=== PATIENT | female | born 1955 | race Caucasian/White ===

== ENCOUNTER → 2020-04-02 | Outpatient (CLI) | payer MEDICARE, MEDICAID ==
[~2020-04-02] MED LIST: ASPI-630 PO; ATOR10TA60 PO; ESTR0.5T PO; FLEC100T PO; FURO-68 PO; METO50TA6 PO; OMEP40CA45 PO; TRIA15CR3 TP
--- NOTE | 2020-04-03 12:56 | CARD ---
MR#: [id number] Date of Study: 04/02/2020 Ordering Physician: NICHOL SPARROW, Referring Physician: NICHOL SPARROW, Tech: Camilla Astudillo [facility] APPROVED REPORT EXAM: Two-dimensional and M-mode echocardiogram with Doppler and color Doppler. Other Information Quality : Fair INDICATION Dsypnea on Exertion RISK FACTORS Obesity 2D DIMENSIONS RVDd2.8 (2.9-3.5cm)Left Atrium(2D)4.0 (1.6-4.0cm) IVSd1.6 (0.7-1.1cm)Aortic Root(2D)3.0 (2.0-3.7cm) LVDd3.9 (3.9-5.9cm)LVOT Diameter2.0 (1.8-2.4cm) PWd1.3 (0.7-1.1cm)LVDs2.7 (2.5-4.0cm) FS (%) 29.2 %SV36.4 ml LVEF(%)56.8 (>50%) Aortic Valve AoV Peak Ramin.142.1cm/sAoV VTI29.2cm AO Peak GR.8.1mmHgLVOT Peak Ramin.138.9cm/s AO Mean GR.4mmHgAVA (VMAX)2.96cm2 ALISON (VTI)3.20cm2 Mitral Valve MV E Kkmvsrew03.2cm/sMV DECEL [id number] MV A Udtfvdlq51.8cm/sE/A Ratio0.9 Tricuspid Valve TR P. Qpxhlphj223jp/sRAP FLSBWGLR3wzBi TR Peak Gr.17dqFsNDVF53kvKy Pulmonary Vein S1 Wdkanavk41.1cm/sD2 Xdtfyvsh73.4cm/s LEFT VENTRICLE The left ventricle is normal size. There is mild to moderate concentric left ventricular hypertrophy. The left ventricular systolic function is normal. The Ejection Fraction is 55-60%. There is normal L V segmental wall motion. Transmitral Doppler flow pattern is Grade I-abnormal relaxation pattern. RIGHT VENTRICLE The right ventricle is normal size. The right ventricular systolic function is normal. ATRIA The left atrium is mildly dilated. The right atrium size is normal. The interatrial septum is intact with no evidence for an atrial septal defect or patent foramen ovale as noted on 2-D or Doppler imagi ng. AORTIC VALVE The aortic valve is calcified but opens well. Doppler and Color Flow revealed no significant aortic r egurgitation. There is no significant aortic valvular stenosis. MITRAL VALVE The mitral valve is calcified but opens well. There is no evidence of mitral valve prolapse. There is no mitral valve stenosis. Doppler and Color Flow revealed no mitral valve regurgitation noted. TRICUSPID VALVE The tricuspid valve is normal in structure and function. Doppler and Color Flow revealed trace tricus pid regurgitation. There is mild to moderate pulmonary hypertension. The PA pressure was estimated at 40 mmHg. There is no tricuspid valve stenosis. PULMONIC VALVE The pulmonic valve is not well visualized. Doppler and Color Flow revealed no pulmonic valvular regur gitation. There is no pulmonic valvular stenosis. GREAT VESSELS The aortic root is normal in size. The ascending aorta is not well seen. The IVC was not visualized. PERICARDIAL EFFUSION There is no evidence of significant pericardial effusion. Critical Notification Critical Value: No <Conclusion> The left ventricular systolic function is normal. The Ejection Fraction is 55-60%. There is normal LV segmental wall motion. Transmitral Doppler flow pattern is Grade I-abnormal relaxation pattern. Trace tricuspid regurgitation. The PA pressure was estimated at 40 mmHg. There is no evidence of significant pericardial effusion. Signed by : Ruslan Mcnamara, Electronically Approved : 04/03/2020 12:56:09
== END ==
LOC: ECHO 14:26
PROVIDERS: ATTEND Internal Medicine Cardiovascular Disease
DX: R06.00 Dyspnea, unspecified (principal)
CPT/HCPCS: 93306

== ENCOUNTER 2021-08-04 09:21 | Emergency (ER) | payer MEDICARE, MEDICAID ==
[~2021-08-04] VITALS: Ht 162.6 cm; Wt 113.6 kg
[~2021-08-04 09:21] MED LIST changes: +ALBU2.5V8 IH; +APIX5TAB PO; +CALC500T30 PO; +CHOL5000 PO; +DIGO125T3 PO; -OMEP40CA45 PO; +OMEP40CA7 PO; +TRIA15CR2 TP
--- NOTE | 2021-08-04 09:53 | RAD ---
INDICATION: Reason: SOA / Spl. Instructions: / History: COMPARISON: March 13, 2021 FINDINGS: Frontal view of chest obtained. Cardiac mediastinal silhouette is mildly prominent but similar to prior. Device projecting over the r ight side of the mediastinum. Limited assessment of the left lung base secondary to overlying cardiac silhouette obscuring. No defi nite consolidation elsewhere in the lungs. IMPRESSION: * No definite focal airspace consolidation. Electronically signed by: Israel Banegas MD (08/04/2021 9:51 AM) [id number]
[2021-08-04 09:58] LABS: BASO # 0.1 x10^3/uL (0.0-0.2); BASO % 1 % (0-3); EOS # 0.1 x10^3/uL (0.0-0.7); EOS % 2 % (0-3); HEMATOCRIT 34.2 % (36.0-47.0); HEMOGLOBIN 11.3 g/dL (12.0-15.5); LYMPH # 1.6 x10^3/uL (1.0-4.8); LYMPH % 16 % (24-48); MEAN CORPUSCULAR HEMOGLOBIN 28 pg (25-35); MEAN CORPUSCULAR HGB CONC 33 g/dL (31-37); MEAN CORPUSCULAR VOLUME 84 fL (79-100); MONO # 0.6 x10^3/uL (0.0-1.1); MONO % 6 % (0-9); NEUT # 7.3 x10^3/uL (1.8-7.7); NEUT % 75 % (31-73); PLATELET COUNT 234 x10^3/uL (140-400); RED BLOOD COUNT 4.09 x10^6/uL (3.50-5.40); RED CELL DISTRIBUTION WIDTH 14.4 % (11.5-14.5); WHITE BLOOD COUNT 9.8 x10^3/uL (4.0-11.0)
--- NOTE | 2021-08-04 10:03 | PHYS DOC ---
Past Medical History Past Medical History: A-Fib, CHF, High Cholesterol, Hypertension Additional Past Medical Histor: HORMONE ISSUES, SUDHEER Past Surgical History: Hysterectomy, Other Additional Past Surgical Histo: CARPLE TUNNEL Smoking Status: Former Smoker Alcohol Use: None General Adult EDM: Chief Complaint: SHORTNESS OF BREATH HPI: HPI: Patient is a 66-year-old female who presents today with shortness of air. Patient states the symptoms started this morning, she got out of bed today and she started having some increased difficulty breathing, she denies any chest pain but does state that she had a tightness along the upper abdomen area. Patient states that on Thursday she had a cardioversion done for atrial fibrillation, she was placed on sotalol 120 mg twice daily after the conversion, she said that is a new medication for her she is also on dig as well. Patient is wearing a Holter monitor at this time. Patient states she does have a history of sleep apnea but does not use a CPAP machine on a daily basis, she said she has an appointment next week with her physician to get that set up. Review of Systems: Review of Systems: Constitutional: Denies fever or chills. [] Eyes: Denies change in visual acuity. [] HENT: Denies nasal congestion or sore throat. [] Respiratory: shortness of breath. [] Cardiovascular: Denies chest pain or edema. [] GI: Denies abdominal pain, nausea, vomiting, bloody stools or diarrhea. [] : Denies dysuria. [] Musculoskeletal: Denies back pain or joint pain. [] Integument: Denies rash. [] Neurologic: Denies headache, focal weakness or sensory changes. [] Endocrine: Denies polyuria or polydipsia. [] Lymphatic: Denies swollen glands. [] Psychiatric: Denies depression or anxiety. [] Heart Score: C/O Chest Pain: No Risk Factors: Risk Factors: DM, Current or recent (<one month) smoker, HTN, HLP, family history of CAD, obesity. Risk Scores: Score 0 - 3: 2.5% MACE over next 6 weeks - Discharge Home Score 4 - 6: 20.3% MACE over next 6 weeks - Admit for Clinical Observation Score 7 - 10: 72.7% MACE over next 6 weeks - Early Invasive Strategies Allergies: Allergies: Allergies Coded Allergies Type Severity Reaction Last Updated Verified Penicillins Allergy Intermediate 03/14/21 Yes diazepam Allergy Intermediate 03/14/21 No hydrocodone Allergy Intermediate 03/14/21 No sulfacetamide Allergy Intermediate 03/14/21 No acetaminophen Allergy Mild 02/27/20 No Physical Exam: PE: Constitutional: Well developed, well nourished, no acute distress, non-toxic appearance. [] HENT: Normocephalic, atraumatic, bilateral external ears normal, oropharynx moist, no oral exudates, nose normal. [] Eyes: PERRLA, EOMI, conjunctiva normal, no discharge. [] Neck: Normal range of motion, no tenderness, supple, no stridor. [] Cardiovascular:Heart rate regular rhythm, no murmur [] Lungs & Thorax: Bilateral breath sounds clear to auscultation [] Abdomen: Bowel sounds normal, soft, no tenderness, no masses, no pulsatile masses. [] Skin: Warm, dry, no erythema, no rash. [] Back: No tenderness, no CVA tenderness. [] Extremities: No tenderness, no cyanosis, no clubbing, ROM intact, no edema. [] Neurologic: Alert and oriented X 3, normal motor function, normal sensory function, no focal deficits noted. [] Psychologic: Affect normal, judgement normal, mood normal. [] Current Patient Data: Labs: Laboratory Tests Test 08/04/21 09:50 White Blood Count 9.8 x10^3/uL (4.0-11.0) Red Blood Count 4.09 x10^6/uL (3.50-5.40) Hemoglobin 11.3 g/dL (12.0-15.5) L Hematocrit 34.2 % (36.0-47.0) L Mean Corpuscular Volume 84 fL (79-100) Mean Corpuscular Hemoglobin 28 pg (25-35) Mean Corpuscular Hemoglobin Concent 33 g/dL (31-37) Red Cell Distribution Width 14.4 % (11.5-14.5) Platelet Count 234 x10^3/uL (140-400) Neutrophils (%) (Auto) 75 % (31-73) H Lymphocytes (%) (Auto) 16 % (24-48) L Monocytes (%) (Auto) 6 % (0-9) Eosinophils (%) (Auto) 2 % (0-3) Basophils (%) (Auto) 1 % (0-3) Neutrophils # (Auto) 7.3 x10^3/uL (1.8-7.7) Lymphocytes # (Auto) 1.6 x10^3/uL (1.0-4.8) Monocytes # (Auto) 0.6 x10^3/uL (0.0-1.1) Eosinophils # (Auto) 0.1 x10^3/uL (0.0-0.7) Basophils # (Auto) 0.1 x10^3/uL (0.0-0.2) Laboratory Tests 08/04/21 09:50 Vital Signs: Vital Signs Date Time Temp Pulse Resp B/P (MAP) Pulse Ox O2 Delivery O2 Flow Rate FiO2 08/04/21 13:28 59 202/84 08/04/21 13:03 62 18 202/84 (123) 95 Room Air 08/04/21 12:33 60 18 188/78 (114) 95 Room Air 08/04/21 12:03 53 18 193/76 (115) 95 Room Air 08/04/21 11:33 53 18 185/81 (115) 95 Room Air 08/04/21 11:03 58 18 183/73 (109) 95 Room Air 08/04/21 10:33 63 18 180/77 (111) 95 Room Air 08/04/21 10:03 62 20 170/77 (108) 95 Room Air 08/04/21 09:26 97.6 62 20 165/70 (101) 95 Room Air 97.6 Vital Signs Date Time Temp Pulse Resp B/P (MAP) Pulse Ox O2 Delivery O2 Flow Rate FiO2 08/04/21 09:26 97.6 62 20 165/70 (101) 95 Room Air 97.6 EKG: EKG: EKG done at [address] Nunez at 940 shows sinus rhythm at a rate of 63 with a MI interval of 190 ms with a QTC of 423 no STEMI [] Radiology/Procedures: Radiology/Procedures: REASON: SOA PROCEDURE: PORTABLE CHEST 1V INDICATION: Reason: SOA / Spl. Instructions: / History: COMPARISON: March 13, 2021 FINDINGS: Frontal view of chest obtained. Cardiac mediastinal silhouette is mildly prominent but similar to prior. Device projecting over the right side of the mediastinum. Limited assessment of the left lung base secondary to overlying cardiac silh ouette obscuring. No definite consolidation elsewhere in the lungs. IMPRESSION: * No definite focal airspace consolidation. Electronically signed by: Israel Banegas MD (08/04/2021 9:51 AM) [id number] Course & Med Decision Making: Course & Med Decision Making Pertinent Labs and Imaging studies reviewed. (See chart for details) 1331 I reviewed patient's radiological and laboratory results with Dr. Mcnamara with the cardiology service, he recommended that the patient continue your home medications as previously prescribed and to call Dr. Ramirez who is her primary regulatory law specialist in the morning to have further evaluation and management of her symptoms. I did speak to patient regarding the recommendations from Dr. Mcnamara and she agrees that she is good to go home and should follow-up with Dr. Ramirez on Thursday. Patient is to continue all her home medications except she should not take her morning dose of sotalol and only her evening dose. Maritza tillman was given a dose of sotalol here in the emergency department. Dragon Disclaimer: Dragon Disclaimer: This electronic medical record was generated, in whole or in part, using a voice recognition dictation system. Departure Departure Impression: Primary Impression: Chest pain in adult Disposition: 01 HOME / SELF CARE / HOMELESS Condition: STABLE Referrals: CASS TORRES III, MD (PCP) NICHOL SPARROW MD Patient Instructions: Chest Pain (Nonspecific) Additional Instructions: Take all your home medications as prescribed except for do not take your a.m. dose today of sotalol Follow-up with Dr. Sparrow on Thursday for further evaluation and management of your chest pain Return to the emergency department should you have increased chest pain, increased shortness of breath or increased working of breathing, sweats associated with chest pain or development of a fever. TOMI JOHN BILLING AND INSURANCE COORDINATOR August 04, 2021 10:03
[2021-08-04 10:10] LABS: PROTHROMBIN TIME PATIENT 14.6 SEC (11.7-14.0)
[2021-08-04 10:22] LABS: CALCIUM 8.3 mg/dL (8.5-10.1); CREATININE 0.7 mg/dL (0.6-1.0); GFR 83.2; POTASSIUM 3.9 mmol/L (3.5-5.1)
[2021-08-04 10:25] LABS: ALBUMIN 3.1 g/dL (3.4-5.0); ALBUMIN/GLOBULIN RATIO 0.9 (1.0-1.7); MAGNESIUM 1.7 mg/dL (1.8-2.4); TOTAL BILIRUBIN 0.5 mg/dL (0.2-1.0); TOTAL PROTEIN 6.6 g/dL (6.4-8.2)
[2021-08-04] MEDS ORDERED: SOTALOL 80 MG TABLET. PO ONE (13:15)
[2021-08-04 14:03] VITALS: BP 176/80
--- NOTE | 2021-08-05 00:55 | EKG ---
[facility] [address] [place] [address] Test Date: 2021-08-04 Test Time: 09:37:26 Pat Name: REED STATON Department: Room: Gender: F Military Logistics Specialist: : 1955 Requested By: TOMI JOHN Order Number: [id number] Reading MD: Mauricio Galvan Measurements Intervals [place] Rate: 63 P: 53 [place]: 190 QRS: 18 QRSD: 88 T: 24 QT: 410 QTc: 423 Interpretive Statements SINUS RHYTHM NON SPECIFIC ST-T WAVE CHANGES Electronically Signed On 08-05-2021 11:04:17 CDT by Mauricio Galvan
== END 2021-08-04 14:11 | disposition home or self-care (01) ==
LOC: ER 09:21
DX: R07.89 Other chest pain (principal); R06.02 Shortness of breath; I48.91 Unspecified atrial fibrillation; E78.00 Pure hypercholesterolemia, unspecified; I11.0 Hypertensive heart disease with heart failure; I50.9 Heart failure, unspecified; Z87.891 Personal history of nicotine dependence; Z88.0 Allergy status to penicillin; Z88.2 Allergy status to sulfonamides; Z88.5 Allergy status to narcotic agent; Z88.8 Allergy status to other drugs, medicaments and biological substances
CPT/HCPCS: 36415; 71045; 80053; 83735; 83880; 84484; 85025; 85610; 85730; 93005; 99285-25

== ENCOUNTER 2021-08-11 17:48 | Inpatient (IN) | payer MEDICARE, MEDICAID ==
[~2021-08-11] VITALS: Ht 162.6 cm; Wt 115.5 kg
[2021-08-11] MEDS ORDERED: IV RINGERS,LACTATED 1000ML 1,000 ML IV SCH (18:00)
[2021-08-11 18:17] LABS: BASO % 0 % (0-3); EOS # 0.2 x10^3/uL (0.0-0.7); EOS % 1 % (0-3); HEMATOCRIT 38.5 % (36.0-47.0); HEMOGLOBIN 12.6 g/dL (12.0-15.5); LYMPH # 2.1 x10^3/uL (1.0-4.8); LYMPH % 17 % (24-48); MEAN CORPUSCULAR HEMOGLOBIN 28 pg (25-35); MEAN CORPUSCULAR HGB CONC 33 g/dL (31-37); MEAN CORPUSCULAR VOLUME 84 fL (79-100); MONO # 0.8 x10^3/uL (0.0-1.1); MONO % 6 % (0-9); NEUT # 9.1 x10^3/uL (1.8-7.7); NEUT % 75 % (31-73); PLATELET COUNT 258 x10^3/uL (140-400); RED BLOOD COUNT 4.59 x10^6/uL (3.50-5.40); RED CELL DISTRIBUTION WIDTH 14.5 % (11.5-14.5); WHITE BLOOD COUNT 12.1 x10^3/uL (4.0-11.0)
[2021-08-11 18:26] LABS: PROTHROMBIN TIME PATIENT 13.7 SEC (11.7-14.0)
[2021-08-11 18:34] LABS: CALCIUM 8.9 mg/dL (8.5-10.1); CREATININE 0.8 mg/dL (0.6-1.0); GFR 71.3; POTASSIUM 3.5 mmol/L (3.5-5.1)
[2021-08-11 18:39] LABS: ALBUMIN 3.1 g/dL (3.4-5.0); ALBUMIN/GLOBULIN RATIO 0.7 (1.0-1.7); MAGNESIUM 1.7 mg/dL (1.8-2.4); TOTAL BILIRUBIN 0.5 mg/dL (0.2-1.0); TOTAL PROTEIN 7.4 g/dL (6.4-8.2)
--- NOTE | 2021-08-11 18:42 | RAD ---
XR CHEST 1V History: Reason: palpitations/pt has on a [employer] heart monitor / Spl. Instructions: / History: Comparison: August 04, 2021 Findings: Mild ill-defined bibasilar opacities. No pleural effusion. No pneumothorax. Unchanged heart size. Ext ernal monitoring coordinator noted. Impression: 1. Mild bibasilar ill-defined opacities, may represent atelectasis. If persistent clinical concern, recommend follow-up. Electronically signed by: Andrés Jensen DO (08/11/2021 6:40 PM) [facility]
--- NOTE | 2021-08-11 18:43 | PHYS DOC ---
Past Medical History Past Medical History: A-Fib, CHF, High Cholesterol, Hypertension Additional Past Medical Histor: "HORMONE ISSUES," SUDHEER Past Surgical History: Hysterectomy, Other Additional Past Surgical Histo: Carpal tunnel release Smoking Status: Former Smoker Alcohol Use: None General Adult EDM: Chief Complaint: Palpitations HPI: HPI: Patient is a 66 year old female with past medical history that includes atrial fibrillation on Coumadin and metoprolol who presents with palpitations and shortness of breath. Patient was seen 1 week ago for shortness of breath. She states that within the past week, she was cardioverted. Patient reports her symptoms began this afternoon. Patient denies chest pain, cough. Review of Systems: Review of Systems: Constitutional: Denies fever, chills or generalized weakness Eyes: Denies change in visual acuity, visual field deficits or discharge HENT: Denies ear pain, nasal congestion or sore throat Respiratory: See HPI Cardiovascular: See HPI GI: Denies abdominal pain, nausea, vomiting, bloody stools or diarrhea : Denies dysuria or hematuria Musculoskeletal: Denies back pain or joint pain Integument: Denies rash or other skin lesion Neurologic: Denies headache, focal weakness or sensory changes Heart Score: C/O Chest Pain: No Current Medications: Current Medications Medications (Trade) Dose Ordered Sig/Martín Route PRN Reason Start Time Stop Time Status Last Admin Dose Admin Ringer's Solution 1,000 ml @ 1,000 mls/hr Q1H IV 08/11/21 18:00 08/11/21 18:59 DC 08/11/21 18:00 Diltiazem HCl (Cardizem Iv Push) 25 mg 1X ONCE IVP 08/11/21 18:15 08/11/21 18:16 DC 08/11/21 18:15 Diltiazem HCl (Cardizem) 60 mg Q8HRS PO 08/11/21 19:30 08/11/21 19:19 Diltiazem HCl 50 mg/Dextrose 60 ml @ 180 mls/hr 1X ONCE IVP 08/11/21 20:45 08/11/21 21:04 DC 08/11/21 21:05 Allergies: Allergies: Allergies Coded Allergies Type Severity Reaction Last Updated Verified Penicillins Allergy Intermediate 03/14/21 Yes diazepam Allergy Intermediate 03/14/21 No hydrocodone Allergy Intermediate 03/14/21 No sulfacetamide Allergy Intermediate 03/14/21 No acetaminophen Allergy Mild 02/27/20 No Physical Exam: PE: Constitutional: Obese, no acute distress, non-toxic appearance. HENT: Normocephalic, atraumatic, bilateral external ears normal. Eyes: EOMI, conjunctiva normal, no discharge. Neck: Normal range of motion, no stridor. Cardiovascular: Irregularly irregular rapid rhythm, no edema. Lungs & Thorax: Equal thoracic expansion, no increased work of breathing. Skin: Warm, dry, no erythema, no rash. Extremities: No cyanosis, no clubbing, ROM intact. Neurologic: Alert and oriented x4, normal motor function, normal sensory function, no focal deficits noted. Current Patient Data: Labs: Laboratory Tests Test 08/11/21 18:10 White Blood Count 12.1 x10^3/uL (4.0-11.0) H Red Blood Count 4.59 x10^6/uL (3.50-5.40) Hemoglobin 12.6 g/dL (12.0-15.5) Hematocrit 38.5 % (36.0-47.0) Mean Corpuscular Volume 84 fL (79-100) Mean Corpuscular Hemoglobin 28 pg (25-35) Mean Corpuscular Hemoglobin Concent 33 g/dL (31-37) Red Cell Distribution Width 14.5 % (11.5-14.5) Platelet Count 258 x10^3/uL (140-400) Neutrophils (%) (Auto) 75 % (31-73) H Lymphocytes (%) (Auto) 17 % (24-48) L Monocytes (%) (Auto) 6 % (0-9) Eosinophils (%) (Auto) 1 % (0-3) Basophils (%) (Auto) 0 % (0-3) Neutrophils # (Auto) 9.1 x10^3/uL (1.8-7.7) H Lymphocytes # (Auto) 2.1 x10^3/uL (1.0-4.8) Monocytes # (Auto) 0.8 x10^3/uL (0.0-1.1) Eosinophils # (Auto) 0.2 x10^3/uL (0.0-0.7) Basophils # (Auto) 0.0 x10^3/uL (0.0-0.2) Prothrombin Time 13.7 SEC (11.7-14.0) Prothrombin Time INR 1.1 (0.8-1.1) Activated Partial Thromboplast Time 33 SEC (24-38) Sodium Level 141 mmol/L (136-145) Potassium Level 3.5 mmol/L (3.5-5.1) Chloride Level 104 mmol/L (98-107) Carbon Dioxide Level 26 mmol/L (21-32) Anion Gap 11 (6-14) Blood Urea Nitrogen 10 mg/dL (7-20) Creatinine 0.8 mg/dL (0.6-1.0) Estimated GFR (Cockcroft-Gault) 71.3 BUN/Creatinine Ratio 13 (6-20) Glucose Level 140 mg/dL (70-99) H Calcium Level 8.9 mg/dL (8.5-10.1) Magnesium Level 1.7 mg/dL (1.8-2.4) L Total Bilirubin 0.5 mg/dL (0.2-1.0) Aspartate Amino Transferase (AST) 15 U/L (15-37) Alanine Aminotransferase (ALT) 15 U/L (14-59) Alkaline Phosphatase 126 U/L (46-116) H Total Protein 7.4 g/dL (6.4-8.2) Albumin 3.1 g/dL (3.4-5.0) L Albumin/Globulin Ratio 0.7 (1.0-1.7) L Laboratory Tests 08/11/21 18:10 Laboratory Tests 08/11/21 18:10 Vital Signs: Vital Signs Date Time Temp Pulse Resp B/P (MAP) Pulse Ox O2 Delivery O2 Flow Rate FiO2 08/11/21 21:57 92 28 135/72 (93) 95 Room Air 08/11/21 21:27 78 21 128/60 (82) 93 Room Air 08/11/21 21:12 94 22 141/67 (91) 94 Room Air 08/11/21 21:05 108 132/71 08/11/21 20:57 112 23 132/71 (91) 95 Room Air 08/11/21 20:42 114 22 149/74 (99) 95 Room Air 08/11/21 20:35 95 20 159/83 (108) 95 Room Air 08/11/21 20:12 112 22 168/87 (114) 95 Room Air 08/11/21 19:42 108 18 175/87 (116) 95 Room Air 08/11/21 19:34 114 27 185/97 (126) 95 Room Air 08/11/21 19:27 120 31 203/95 (131) 95 Room Air 08/11/21 19:19 112 194/87 08/11/21 19:12 104 22 194/87 (122) 93 Room Air 08/11/21 18:57 104 20 181/83 (115) 93 Room Air 08/11/21 18:42 104 25 178/84 (115) 93 Room Air 08/11/21 18:27 96 35 133/88 (103) 94 Room Air 08/11/21 18:17 144 24 163/72 (102) 94 Room Air 08/11/21 18:15 160 163/72 08/11/21 18:12 152 23 174/76 (108) 96 Room Air 08/11/21 17:51 97.9 162 24 183/92 (122) 96 Room Air 97.9 EKG: EKG: EKG Interpreted by Dr. Nunez at 1801: Irregularly irregular rhythm at 132 bpm with no ectopic beats. QT 314 ms/QTc 469 ms. No STEMI. Radiology/Procedures: Radiology/Procedures: PROCEDURE: PORTABLE CHEST 1V XR CHEST 1V History: Reason: palpitations/pt has on a [employer] heart monitor / Spl. Instructions: / History: Comparison: August 04, 2021 Findings: Mild ill-defined bibasilar opacities. No pleural effusion. No pneumothorax. Unchanged heart size. External quality assurance monitor body noted. Impression: 1. Mild bibasilar ill-defined opacities, may represent atelectasis. If persistent clinical concern, recommend follow-up. Electronically signed by: Andrés Jensen DO (08/11/2021 6:40 PM) [facility] Course & Med Decision Making: Course & Med Decision Making Pertinent Labs and Imaging studies reviewed. (See chart for details) Patient is a 66-year-old female with past medical history that includes atrial fibrillation who presents with palpitations and shortness of breath. Patient's heart rate was found to be between 120 and 160 here in the department, consistent with atrial fibrillation with RVR. Patient was given a 25 mg Cardizem push, which did bring her heart rate down. She was then started on 60 mg of Cardizem p.o. and attempt to maintain. Patient's heart rate was above 110, between 110 and 120s while in the department. Attempted to order Cardizem drip, but they are out in the hospital pharmacy secondary to national shortage. It was discussed with Dr. Nunez, attending in the ER, who recommended a 50 mg Cardizem push over 20 minutes. Patient will then be admitted to telemetry under Dr. Mcgraw, hospitalist, with 60 mg p.o. Cardizem ordered every 8 hours. Cardiology is aware of patient case and was consulted. Patient made aware of findings and treatment plan. Patient hemodynamically stable at time of transfer to inpatient floor. Dragon Disclaimer: Dragon Disclaimer: This electronic medical record was generated, in whole or in part, using a voice recognition dictation system. Departure Departure Impression: Primary Impression: Atrial fibrillation with RVR Disposition: ADMITTED INPATIENT Admitting Physician: KEVIN (Lcuien) Condition: GUARDED Referrals: CASS TORRES III, MD (PCP) YANA ZALDIVAR August 11, 2021 18:43
[2021-08-11] MEDS: dilTIAZem HCL 30 MG TABLET PO SCH (19:19)
[2021-08-11 20:13] LABS: WBC,URINE >40 /HPF (0-4)
[2021-08-11 20:19] LABS: BACTERIA,URINE MODERATE /HPF (0-FEW)
[2021-08-11] MEDS ORDERED: DILTIAZEM IVP ONE (20:45)
[2021-08-11] MEDS ORDERED: DEXTROSE 5% IVP ONE (20:45)
[2021-08-11] MEDS ORDERED: PUSH IVP ONE (20:45)
[2021-08-11] MEDS ORDERED: dilTIAZem HCL 30 MG TABLET PO SCH (22:00)
[2021-08-11 22:20] VITALS: BP 179/81
--- NOTE | 2021-08-11 22:30 | NUR ---
The patient, REED STATON, 66 y/o, F admitted by JAYLAN CURIEL MD, was given written information regarding hospital policies, unit procedures and contact persons. pt having palpations. in afib rvr, hr 119. went over home meds, assessment completed and history was pulled forward and discussed w pt. Valuables were checked and charted in [facility]. lcrn.
[2021-08-11] MEDS ORDERED: CLOBETASOL TOP (22:31)
[2021-08-11] MEDS ORDERED: DIGOXIN IV 500 MCG/2 ML AMPUL. IV PRN (23:00)
[2021-08-11] MEDS: METOPROLOL IV PUSH 5 MG/5 ML VIAL. IVP PRN (23:14)
[2021-08-11 23:23] VITALS: BP 164/66
--- NOTE | 2021-08-11 23:30 | NUR ---
pt HR 120-160'S. CALLED DR CURIEL .SEE ORDERS. LCRN
[2021-08-12] MEDS ORDERED: diphenhydrAMINE HCL 25 MG CAPSULE PO PRN (01:00)
[2021-08-12] MEDS ORDERED: ONDANSETRON ODT 4 MG TAB.RAPDIS. PO PRN (01:00)
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
[2021-08-12 02:58] VITALS: BP 121/63
--- NOTE | 2021-08-12 04:11 | NUR ---
pt on ra sats went down to 61%. placed on 2 l nc now sats are 97%. hr 107
[2021-08-12] MEDS: dilTIAZem HCL 30 MG TABLET PO SCH (06:25)
[2021-08-12 07:00] VITALS: BP 107/70
--- NOTE | 2021-08-12 07:06 | PDOC1 ---
History and Physical Date of Admission Date of Admission DATE: 08/12/21 TIME: 07:02 Identification/Chief Complaint Chief Complaint Chest pain Source Source: Patient History of Present Illness History of Present Illness Ms Pineda is a 66 year old female w/ PMHx afib, HLD, HTN, chronic diastolic CHF, SUDHEER who presents with palpitations and shortness of breath. Patient was seen 1 week ago for shortness of breath. She states that within the past week, she was cardioverted. Patient reports her symptoms began this afternoon. Patient denies chest pain, cough. She notes she had cardioversion on 08/02/2021 at [facility] and currently scheduled for ablation therapy on 09/30/2021. She has had no history of TIA or CVA. Labs with WBC 12.1, Hb 12.6, platelets 258, NA 141, K3.5, BUN 10, CR 0.8, glucose 140, calcium 8.9, magnesium 1.7, bilirubin 0.5, AST 15, ALT 15, alkaline phosphatase 126, albumin 3.1, NT proBNP 326, initial high-sensitivity troponins 120 9 repeat is 141, urinalysis large leuk esterase. Chest radiograph with bibasilar opacities EKG A. fib Past Medical History Cardiovascular: AFIB, HTN, Hyperlipidemia Pulmonary: Other GI: GERD Past Surgical History Past Surgical History: Tonsillectomy, Hysterectomy, Other Family History Family History: Hypertension Social History Smoke: No ALCOHOL: none Drugs: None Current Medications Current Medications Current Medications Ringer's Solution 1,000 ml @ 1,000 mls/hr Q1H IV Last administered on 08/11/21at 18:00; Start 08/11/21 at 18:00; Stop 08/11/21 at 18:59; Status DC Diltiazem HCl (Cardizem Iv Push) 25 mg 1X ONCE IVP Last administered on 08/11/21at 18:15; Start 08/11/21 at 18:15; Stop 08/11/21 at 18:16; Status DC Diltiazem HCl (Cardizem) 30 mg Q8HRS PO ; Start 08/11/21 at 22:00; Stop 08/11/21 at 19:06; Status DC Diltiazem HCl (Cardizem) 60 mg Q8HRS PO Last administered on 08/12/21at 06:25; Start 08/11/21 at 19:30 Diltiazem HCl (Cardizem Iv Push) 50 mg 1X ONCE IVP ; Start 08/11/21 at 20:45; Stop 08/11/21 at 20:46; Status UNV Diltiazem HCl 50 mg/Dextrose 60 ml @ 180 mls/hr 1X ONCE IVP Last administered on 08/11/21at 21:05; Start 08/11/21 at 20:45; Stop 08/11/21 at 21:04; Status DC Metoprolol Tartrate (Lopressor Vial) 5 mg PRN Q5MIN PRN IVP TACHYCARDIA Last administered on 08/11/21at 23:14; Start 08/11/21 at 23:00 Digoxin (Lanoxin) 500 mcg PRN 1X PRN IV TACHYCARDIA; Start 08/11/21 at 23:00 Ondansetron HCl (Zofran Odt) 4 mg PRN Q6HRS PRN PO NAUSEA/VOMITING Last administered on 08/12/21at 01:05; Start 08/12/21 at 01:00 Diphenhydramine HCl (Benadryl) 25 mg PRN Q8HRS PRN PO ITCHING; Start 08/12/21 at 01:00 Active Scripts Active Eliquis (Apixaban) 5 Mg Tablet 5 Mg PO BID 30 Days Reported [clobetasol propior] TOP PRN Clobetasol Propiorate Cream as needed for psoriasis to elbow and wrist Calcium (Calcium Carbonate) 500 Mg Tablet 1,200 Mg PO DAILY Vitamin D3 (Vitamin D) 125 Mcg Capsule 2,000 Intlu PO DAILY 5,000 UNITS = 125 MCG Proair Hfa Inhaler (Albuterol Sulfate) 8.5 Gm Hfa.aer.ad 2 Puff IH PRN Q4-6HRS PRN 21 Days Triamcinolone Acetonide 0.1% Cream (Triamcinolone Acetonide) 15 Gm Cream..g. 1 Jimbo TP PRN PRN Atorvastatin Calcium 10 Mg Tablet 10 Mg PO HS Omeprazole 40 Mg Capsule.dr 40 Mg PO DAILY Estradiol 0.5 Mg Tablet 0.5 Mg PO DAILY Allergies Allergies: Coded Allergies: Penicillins (Verified Allergy, Intermediate, 03/14/21) diazepam (Unverified Allergy, Intermediate, 03/14/21) sulfacetamide (Unverified Allergy, Intermediate, 03/14/21) acetaminophen (Verified Allergy, Mild, 08/12/21) gives her reflux hydrocodone (Verified Allergy, Mild, 08/12/21) pt states it gives her reflux ROS General: YES: Fatigue, Malaise; No: Chills, Night Sweats, Appetite, Other PSYCHOLOGICAL ROS: No: Anxiety, Behavioral Disorder, Concentration difficultie, Decreased libido, Depression, Disorientation, Hallucinations, Hostility, Irritablity, Memory difficulties, Mood Swings, Obsessive thoughts, Physical abuse, Sexual abuse, Sleep disturbances, Suicidal ideation, Other Eyes: No Blurry vision, No Decreased vision, No Double vision, No Dry eyes, No Excessive tearing, No Eye Pain, No Itchy Eyes, No Loss of vision, No Photophobia, No Scotomata, No Uses contacts, No Uses glasses, No Other HEENT: No: Heacaches, Visual Changes, Hearing change, Nasal congestion, Nasal discharge, Oral lesions, Sinus pain, Sore Throat, Epistaxis, Sneezing, Snoring, Tinnitus, Vertigo, Vocal changes, Other ALLERGY AND IMMUNOLOGY: No: Hives, Insect Bite Sensitivity, Itchy/Watery Eyes, Nasal Congestion, Post Nasal Drip, Seasonal Allergies, Other Hematological and Lymphatic: No: Bleeding Problems, Blood Clots, Blood Transfusions, Brusing, Night Sweats, Pallor, Swollen Lymph Nodes, Other ENDOCRINE: No: Breast Changes, Galactorrhea, Hair Pattern Changes, Hot Flashes, Malaise/lethargy, Mood Swings, Palpitations, Polydipsia/polyuria, Skin Changes, Temperature Intolerance, Unexpected Weight Changes, Other Breast: No New/Changing Breast Lumps, No Nipple changes, No Nipple discharge, No Other Respiratory: No: Cough, Hemoptysis, Orthopnea, Pleuritic Pain, Shortness of breath, SOB with excertion, Sputum Changes, Stridor, Tachypnea, Wheezing, Other Cardiovascular: yes Palpitations; No Chest Pain, No Orthopnea, No Paroxysmal Noc. Dyspnea, No Edema, No Lt Headedness, No Other Gastrointestinal: No Nausea, No Vomiting, No Abdominal Pain, No Diarrhea, No Constipation, No Melena, No Hematochezia, No Other Genitourinary: No Dysuria, No Frequency, No Incontinence, No Hematuria, No Retention, No Discharge, No Urgency, No Pain, No Flank Pain, No Other, No , No , No , No , No , No , No Musculoskeletal: No Gait Disturbance, No Joint Pain, No Joint Stiffness, No Joint Swelling, No Muscle Pain, No Muscular Weakness, No Pain In:, No Swelling In:, No Other Neurological: No Behavorial Changes, No Bowel/Bladder ControlChng, No Confusion, No Dizziness, No Gait Disturbance, No Headaches, No Impaired Coord/balance, No Memory Loss, No Numbness/Tingling, No Seizures, No Speech Problems, No Tremors, No Visual Changes, No Weakness, No Other Skin: No Dry Skin, No Eczema, No Hair Changes, No Lumps, No Mole Changes, No Mottling, No Nail Changes, No Pruritus, No Rash, No Skin Lesion Changes, No Other, No Acne Physical Exam General: Alert, Oriented X3, Cooperative, No acute distress HEENT: Atraumatic, PERRLA, EOMI, Mucous membr. moist/pink Heart: irregularly irregular Abdomen: Normal bowel sounds, Soft, No tenderness, No hepatosplenomegaly, No masses Rectal Exam: not examined Extremities: No clubbing, No cyanosis, No edema, Normal pulses, No tenderness/swelling Skin: No rashes, No breakdown, No significant lesion Neuro: Normal gait, Normal speech, Strength at 5/5 X4 ext, Normal tone, Sensation intact, Cranial nerves 3-12 NL, Reflexes 2+ Psych/Mental Status: Mental status NL, Mood NL Vitals Vitals Vital Signs Date Time Temp Pulse Resp B/P (MAP) Pulse Ox O2 Delivery O2 Flow Rate FiO2 08/12/21 06:25 104 121/63 08/12/21 02:58 97.9 20 93 Room Air 97.9 Labs Labs Laboratory Tests Test 08/11/21 18:10 08/11/21 19:33 08/11/21 19:50 White Blood Count 12.1 x10^3/uL (4.0-11.0) Red Blood Count 4.59 x10^6/uL (3.50-5.40) Hemoglobin 12.6 g/dL (12.0-15.5) Hematocrit 38.5 % (36.0-47.0) Mean Corpuscular Volume 84 fL (79-100) Mean Corpuscular Hemoglobin 28 pg (25-35) Mean Corpuscular Hemoglobin Concent 33 g/dL (31-37) Red Cell Distribution Width 14.5 % (11.5-14.5) Platelet Count 258 x10^3/uL (140-400) Neutrophils (%) (Auto) 75 % (31-73) Lymphocytes (%) (Auto) 17 % (24-48) Monocytes (%) (Auto) 6 % (0-9) Eosinophils (%) (Auto) 1 % (0-3) Basophils (%) (Auto) 0 % (0-3) Neutrophils # (Auto) 9.1 x10^3/uL (1.8-7.7) Lymphocytes # (Auto) 2.1 x10^3/uL (1.0-4.8) Monocytes # (Auto) 0.8 x10^3/uL (0.0-1.1) Eosinophils # (Auto) 0.2 x10^3/uL (0.0-0.7) Basophils # (Auto) 0.0 x10^3/uL (0.0-0.2) Prothrombin Time 13.7 SEC (11.7-14.0) Prothromb Time International Ratio 1.1 (0.8-1.1) Activated Partial Thromboplast Time 33 SEC (24-38) Sodium Level 141 mmol/L (136-145) Potassium Level 3.5 mmol/L (3.5-5.1) Chloride Level 104 mmol/L (98-107) Carbon Dioxide Level 26 mmol/L (21-32) Anion Gap 11 (6-14) Blood Urea Nitrogen 10 mg/dL (7-20) Creatinine 0.8 mg/dL (0.6-1.0) Estimated GFR (Cockcroft-Gault) 71.3 BUN/Creatinine Ratio 13 (6-20) Glucose Level 140 mg/dL (70-99) Calcium Level 8.9 mg/dL (8.5-10.1) Magnesium Level 1.7 mg/dL (1.8-2.4) Total Bilirubin 0.5 mg/dL (0.2-1.0) Aspartate Amino Transf (AST/SGOT) 15 U/L (15-37) Alanine Aminotransferase (ALT/SGPT) 15 U/L (14-59) Alkaline Phosphatase 126 U/L (46-116) Troponin I High Sensitivity 129 ng/L (4-50) 141 ng/L (4-50) QE-Jny-Q-Type Natriuretic Peptide 326 pg/mL (0-124) Total Protein 7.4 g/dL (6.4-8.2) Albumin 3.1 g/dL (3.4-5.0) Albumin/Globulin Ratio 0.7 (1.0-1.7) Urine Collection Type Unknown Urine Color (Auto) Light orange Urine Turbidity Turbid Urine pH (Auto) 7.5 (<5.0-8.0) Urine Specific [place] 1.015 (1.000-1.030) Urine Protein (Auto) 70 mg/dL (Negative) Urine Glucose (Auto)(UA) Negative mg/dL (Negative) Urine Ketones (Auto) Negative mg/dL (Negative) Urine Blood (Auto) Moderate (Negative) Urine Nitrite Negative (Negative) Urine Bilirubin (Auto) Negative (Negative) Urine Urobilinogen (Auto) Normal mg/dL (Normal) Urine Leukocyte Esterase (Auto) Large (Negative) Urine RBC 1-2 /HPF (0-2) Urine WBC >40 /HPF (0-4) Urine Squamous Epithelial Cells Many /LPF Urine Bacteria Moderate /HPF (0-FEW) Laboratory Tests Test 08/11/21 18:10 08/11/21 19:33 08/11/21 19:50 White Blood Count 12.1 x10^3/uL (4.0-11.0) Red Blood Count 4.59 x10^6/uL (3.50-5.40) Hemoglobin 12.6 g/dL (12.0-15.5) Hematocrit 38.5 % (36.0-47.0) Mean Corpuscular Volume 84 fL (79-100) Mean Corpuscular Hemoglobin 28 pg (25-35) Mean Corpuscular Hemoglobin Concent 33 g/dL (31-37) Red Cell Distribution Width 14.5 % (11.5-14.5) Platelet Count 258 x10^3/uL (140-400) Neutrophils (%) (Auto) 75 % (31-73) Lymphocytes (%) (Auto) 17 % (24-48) Monocytes (%) (Auto) 6 % (0-9) Eosinophils (%) (Auto) 1 % (0-3) Basophils (%) (Auto) 0 % (0-3) Neutrophils # (Auto) 9.1 x10^3/uL (1.8-7.7) Lymphocytes # (Auto) 2.1 x10^3/uL (1.0-4.8) Monocytes # (Auto) 0.8 x10^3/uL (0.0-1.1) Eosinophils # (Auto) 0.2 x10^3/uL (0.0-0.7) Basophils # (Auto) 0.0 x10^3/uL (0.0-0.2) Prothrombin Time 13.7 SEC (11.7-14.0) Prothromb Time International Ratio 1.1 (0.8-1.1) Activated Partial Thromboplast Time 33 SEC (24-38) Sodium Level 141 mmol/L (136-145) Potassium Level 3.5 mmol/L (3.5-5.1) Chloride Level 104 mmol/L (98-107) Carbon Dioxide Level 26 mmol/L (21-32) Anion Gap 11 (6-14) Blood Urea Nitrogen 10 mg/dL (7-20) Creatinine 0.8 mg/dL (0.6-1.0) Estimated GFR (Cockcroft-Gault) 71.3 BUN/Creatinine Ratio 13 (6-20) Glucose Level 140 mg/dL (70-99) Calcium Level 8.9 mg/dL (8.5-10.1) Magnesium Level 1.7 mg/dL (1.8-2.4) Total Bilirubin 0.5 mg/dL (0.2-1.0) Aspartate Amino Transf (AST/SGOT) 15 U/L (15-37) Alanine Aminotransferase (ALT/SGPT) 15 U/L (14-59) Alkaline Phosphatase 126 U/L (46-116) Troponin I High Sensitivity 129 ng/L (4-50) 141 ng/L (4-50) WC-Jcu-O-Type Natriuretic Peptide 326 pg/mL (0-124) Total Protein 7.4 g/dL (6.4-8.2) Albumin 3.1 g/dL (3.4-5.0) Albumin/Globulin Ratio 0.7 (1.0-1.7) Urine Collection Type Unknown Urine Color (Auto) Light orange Urine Turbidity Turbid Urine pH (Auto) 7.5 (<5.0-8.0) Urine Specific [place] 1.015 (1.000-1.030) Urine Protein (Auto) 70 mg/dL (Negative) Urine Glucose (Auto)(UA) Negative mg/dL (Negative) Urine Ketones (Auto) Negative mg/dL (Negative) Urine Blood (Auto) Moderate (Negative) Urine Nitrite Negative (Negative) Urine Bilirubin (Auto) Negative (Negative) Urine Urobilinogen (Auto) Normal mg/dL (Normal) Urine Leukocyte Esterase (Auto) Large (Negative) Urine RBC 1-2 /HPF (0-2) Urine WBC >40 /HPF (0-4) Urine Squamous Epithelial Cells Many /LPF Urine Bacteria Moderate /HPF (0-FEW) Images Images PORTABLE CHEST 1V XR CHEST 1V History: Reason: palpitations/pt has on a Collarity heart monitor / Spl. Instructions: / History: Comparison: August 04, 2021 Findings: Mild ill-defined bibasilar opacities. No pleural effusion. No pneumothorax. Unchanged heart size. External cardiac sonographer noted. Impression: 1. Mild bibasilar ill-defined opacities, may represent atelectasis. If pe rsistent clinical concern, recommend follow-up. VTE Prophylaxis Ordered VTE Prophylaxis Devices: Yes VTE Pharmacological Prophylaxi: Yes Assessment/Plan Assessment/Plan AFIB with RVR - recent cardioversion 08/02/2021, ablation scheduled in September. Heart rate better controlled but still slightly elevated. She has been started on Cardizem orally on admission. We will increase the dose for better control. Continue Eliquis HTN - controlled HLD - statin SUDHEER - untreated Morbid obesity NSTEMI - likely demand mediated type 2 due to AFIB RVR FEN - Cardiac diet PPX - eliquis FULL CODE Dispo - inpatient Justifications for Admission Other Justification HERBIE KOHLER MD August 12, 2021 07:06
[2021-08-12] MEDS ORDERED: ACETAMINOPHEN 325 MG TABLET. PO PRN (07:15)
[2021-08-12] MEDS ORDERED: ONDANSETRON PF 4 MG/2 ML VIAL. IVP PRN (07:15)
[2021-08-12] MEDS ORDERED: fentaNYL PF VIAL 100 MCG/2 ML VIAL IVP PRN (07:15)
[2021-08-12] MEDS ORDERED: MAGNESIUM SULFATE 2GM 50 ML IV ONE (08:00)
[2021-08-12] MEDS: CHOLECALCIFEROL (VITAMIN D3) 1,000 UNIT TABLET PO SCH (08:37)
[2021-08-12] MEDS: PANTOPRAZOLE 40 MG TABLET.DR. PO SCH (08:37)
[2021-08-12] MEDS: APIXABAN 5 MG TABLET. PO SCH ×2 (08:37→20:07)
[2021-08-12] MEDS: CALCIUM CARBONATE 500 MG TABLET PO SCH (08:37)
--- NOTE | 2021-08-12 09:50 | PDOC2 ---
CONSULT Date of Consult Date of Consult DATE: 08/12/21 TIME: 09:44 Reason for Consult Reason for Consult: Atrial fibrillation Referring Physician Referring Physician: Dr. Ocasio Identification/Chief Complaint Chief Complaint Palpitations Source Source: Chart review, Patient History of Present Illness Reason for Visit: 66-year-old female with history of paroxysmal atrial fibrillation who recently underwent cardioversion on 08/02/2021 at [facility] and currently scheduled for ablation therapy on 09/30/2021 presented with palpitations that started yesterday afte rnoon. She had mild shortness of breath when this started that has currently resolved. She denied any chest pain, orthopnea/PND or syncope. She also denied any TIA/CVA. Past Medical History Cardiovascular: AFIB, HTN, Hyperlipidemia Pulmonary: Other GI: GERD Past Surgical History Past Surgical History: Tonsillectomy, Hysterectomy, Other Family History Family History: Hypertension Social History ALCOHOL: none Drugs: None Lives: Friends Current Medications Current Medications Current Medications Ringer's Solution 1,000 ml @ 1,000 mls/hr Q1H IV Last administered on 08/11/21at 18:00; Start 08/11/21 at 18:00; Stop 08/11/21 at 18:59; Status DC Diltiazem HCl (Cardizem Iv Push) 25 mg 1X ONCE IVP Last administered on 08/11/21at 18:15; Start 08/11/21 at 18:15; Stop 08/11/21 at 18:16; Status DC Diltiazem HCl (Cardizem) 30 mg Q8HRS PO ; Start 08/11/21 at 22:00; Stop 08/11/21 at 19:06; Status DC Diltiazem HCl (Cardizem) 60 mg Q8HRS PO Last administered on 08/12/21at 06:25; Start 08/11/21 at 19:30 Diltiazem HCl (Cardizem Iv Push) 50 mg 1X ONCE IVP ; Start 08/11/21 at 20:45; Stop 08/11/21 at 20:46; Status UNV Diltiazem HCl 50 mg/Dextrose 60 ml @ 180 mls/hr 1X ONCE IVP Last administered on 08/11/21at 21:05; Start 08/11/21 at 20:45; Stop 08/11/21 at 21:04; Status DC Metoprolol Tartrate (Lopressor Vial) 5 mg PRN Q5MIN PRN IVP TACHYCARDIA Last administered on 08/11/21at 23:14; Start 08/11/21 at 23:00 Digoxin (Lanoxin) 500 mcg PRN 1X PRN IV TACHYCARDIA; Start 08/11/21 at 23:00 Ondansetron HCl (Zofran Odt) 4 mg PRN Q6HRS PRN PO NAUSEA/VOMITING Last administered on 08/12/21at 01:05; Start 08/12/21 at 01:00 Diphenhydramine HCl (Benadryl) 25 mg PRN Q8HRS PRN PO ITCHING; Start 08/12/21 at 01:00 Magnesium Sulfate 50 ml @ 25 mls/hr 1X ONCE IV Last administered on 08/12/21at 08:39; Start 08/12/21 at 08:00; Stop 08/12/21 at 09:59 Apixaban (Eliquis) 5 mg BID PO Last administered on 08/12/21at 08:37; Start 08/12/21 at 09:00 Atorvastatin Calcium (Lipitor) 10 mg HS PO ; Start 08/12/21 at 21:00 Calcium Carbonate/ Glycine (Oscal) 1,200 mg DAILY PO Last administered on 08/12/21at 08:37; Start 08/12/21 at 09:00 Vitamin D (Vitamin D3) 2,000 unit DAILY PO Last administered on 08/12/21at 08:37; Start 08/12/21 at 09:00 Pantoprazole Sodium (Protonix) 40 mg DAILYAC PO Last administered on 08/12/21at 08:37; Start 08/12/21 at 07:30 Ondansetron HCl (Zofran) 4 mg PRN Q4HRS PRN IVP NAUSEA/VOMITING; Start 08/12/21 at 07:15 Acetaminophen (Tylenol) 650 mg PRN Q6HRS PRN PO MILD PAIN / TEMP > 100.3'F; Start 08/12/21 at 07:15 Fentanyl Citrate (Fentanyl 2ml Vial) 25 mcg PRN Q3HRS PRN IVP SEVERE PAIN 7-10; Start 08/12/21 at 07:15 Active Scripts Active Eliquis (Apixaban) 5 Mg Tablet 5 Mg PO BID 30 Days Reported [clobetasol propior] TOP PRN Clobetasol Propiorate Cream as needed for psoriasis to elbow and wrist Calcium (Calcium Carbonate) 500 Mg Tablet 1,200 Mg PO DAILY Vitamin D3 (Vitamin D) 125 Mcg Capsule 2,000 Intlu PO DAILY 5,000 UNITS = 125 MCG Proair Hfa Inhaler (Albuterol Sulfate) 8.5 Gm Hfa.aer.ad 2 Puff IH PRN Q4-6HRS PRN 21 Days Triamcinolone Acetonide 0.1% Cream (Triamcinolone Acetonide) 15 Gm Cream..g. 1 Jimbo TP PRN PRN Atorvastatin Calcium 10 Mg Tablet 10 Mg PO HS Omeprazole 40 Mg Capsule.dr 40 Mg PO DAILY Estradiol 0.5 Mg Tablet 0.5 Mg PO DAILY Allergies Allergies: Coded Allergies: Penicillins (Verified Allergy, Intermediate, 03/14/21) diazepam (Unverified Allergy, Intermediate, 03/14/21) sulfacetamide (Unverified Allergy, Intermediate, 03/14/21) acetaminophen (Verified Allergy, Mild, 08/12/21) gives her reflux hydrocodone (Verified Allergy, Mild, 08/12/21) pt states it gives her reflux ROS PSYCHOLOGICAL ROS: No: Hallucinations Eyes: No Loss of vision HEENT: No: Epistaxis Respiratory: YES: Shortness of breath; No: Hemoptysis Cardiovascular: yes Palpitations; No Chest Pain Gastrointestinal: No Vomiting, No Diarrhea Neurological: No Confusion, No Seizures Skin: No Rash Physical Exam General: Alert, Oriented X3 HEENT: Atraumatic Lungs: Clear to auscultation Heart: Other (Heart rate irregular) Abdomen: Soft, No tenderness Extremities: No edema Neuro: Normal speech Psych/Mental Status: Mood NL Vitals VITALS Vital Signs Date Time Temp Pulse Resp B/P (MAP) Pulse Ox O2 Delivery O2 Flow Rate FiO2 08/12/21 08:00 Room Air 08/12/21 07:00 97.4 116 20 107/70 (82) 93 2.0 97.4 Labs Labs Laboratory Tests Test 08/11/21 18:10 08/11/21 19:33 08/11/21 19:50 White Blood Count 12.1 x10^3/uL (4.0-11.0) Red Blood Count 4.59 x10^6/uL (3.50-5.40) Hemoglobin 12.6 g/dL (12.0-15.5) Hematocrit 38.5 % (36.0-47.0) Mean Corpuscular Volume 84 fL (79-100) Mean Corpuscular Hemoglobin 28 pg (25-35) Mean Corpuscular Hemoglobin Concent 33 g/dL (31-37) Red Cell Distribution Width 14.5 % (11.5-14.5) Platelet Count 258 x10^3/uL (140-400) Neutrophils (%) (Auto) 75 % (31-73) Lymphocytes (%) (Auto) 17 % (24-48) Monocytes (%) (Auto) 6 % (0-9) Eosinophils (%) (Auto) 1 % (0-3) Basophils (%) (Auto) 0 % (0-3) Neutrophils # (Auto) 9.1 x10^3/uL (1.8-7.7) Lymphocytes # (Auto) 2.1 x10^3/uL (1.0-4.8) Monocytes # (Auto) 0.8 x10^3/uL (0.0-1.1) Eosinophils # (Auto) 0.2 x10^3/uL (0.0-0.7) Basophils # (Auto) 0.0 x10^3/uL (0.0-0.2) Prothrombin Time 13.7 SEC (11.7-14.0) Prothromb Time International Ratio 1.1 (0.8-1.1) Activated Partial Thromboplast Time 33 SEC (24-38) Sodium Level 141 mmol/L (136-145) Potassium Level 3.5 mmol/L (3.5-5.1) Chloride Level 104 mmol/L (98-107) Carbon Dioxide Level 26 mmol/L (21-32) Anion Gap 11 (6-14) Blood Urea Nitrogen 10 mg/dL (7-20) Creatinine 0.8 mg/dL (0.6-1.0) Estimated GFR (Cockcroft-Gault) 71.3 BUN/Creatinine Ratio 13 (6-20) Glucose Level 140 mg/dL (70-99) Calcium Level 8.9 mg/dL (8.5-10.1) Magnesium Level 1.7 mg/dL (1.8-2.4) Total Bilirubin 0.5 mg/dL (0.2-1.0) Aspartate Amino Transf (AST/SGOT) 15 U/L (15-37) Alanine Aminotransferase (ALT/SGPT) 15 U/L (14-59) Alkaline Phosphatase 126 U/L (46-116) Troponin I High Sensitivity 129 ng/L (4-50) 141 ng/L (4-50) GH-Hom-G-Type Natriuretic Peptide 326 pg/mL (0-124) Total Protein 7.4 g/dL (6.4-8.2) Albumin 3.1 g/dL (3.4-5.0) Albumin/Globulin Ratio 0.7 (1.0-1.7) Urine Collection Type Unknown Urine Color (Auto) Light orange Urine Turbidity Turbid Urine pH (Auto) 7.5 (<5.0-8.0) Urine Specific [place] 1.015 (1.000-1.030) Urine Protein (Auto) 70 mg/dL (Negative) Urine Glucose (Auto)(UA) Negative mg/dL (Negative) Urine Ketones (Auto) Negative mg/dL (Negative) Urine Blood (Auto) Moderate (Negative) Urine Nitrite Negative (Negative) Urine Bilirubin (Auto) Negative (Negative) Urine Urobilinogen (Auto) Normal mg/dL (Normal) Urine Leukocyte Esterase (Auto) Large (Negative) Urine RBC 1-2 /HPF (0-2) Urine WBC >40 /HPF (0-4) Urine Squamous Epithelial Cells Many /LPF Urine Bacteria Moderate /HPF (0-FEW) Laboratory Tests Test 08/11/21 18:10 08/11/21 19:33 08/11/21 19:50 White Blood Count 12.1 x10^3/uL (4.0-11.0) Red Blood Count 4.59 x10^6/uL (3.50-5.40) Hemoglobin 12.6 g/dL (12.0-15.5) Hematocrit 38.5 % (36.0-47.0) Mean Corpuscular Volume 84 fL (79-100) Mean Corpuscular Hemoglobin 28 pg (25-35) Mean Corpuscular Hemoglobin Concent 33 g/dL (31-37) Red Cell Distribution Width 14.5 % (11.5-14.5) Platelet Count 258 x10^3/uL (140-400) Neutrophils (%) (Auto) 75 % (31-73) Lymphocytes (%) (Auto) 17 % (24-48) Monocytes (%) (Auto) 6 % (0-9) Eosinophils (%) (Auto) 1 % (0-3) Basophils (%) (Auto) 0 % (0-3) Neutrophils # (Auto) 9.1 x10^3/uL (1.8-7.7) Lymphocytes # (Auto) 2.1 x10^3/uL (1.0-4.8) Monocytes # (Auto) 0.8 x10^3/uL (0.0-1.1) Eosinophils # (Auto) 0.2 x10^3/uL (0.0-0.7) Basophils # (Auto) 0.0 x10^3/uL (0.0-0.2) Prothrombin Time 13.7 SEC (11.7-14.0) Prothromb Time International Ratio 1.1 (0.8-1.1) Activated Partial Thromboplast Time 33 SEC (24-38) Sodium Level 141 mmol/L (136-145) Potassium Level 3.5 mmol/L (3.5-5.1) Chloride Level 104 mmol/L (98-107) Carbon Dioxide Level 26 mmol/L (21-32) Anion Gap 11 (6-14) Blood Urea Nitrogen 10 mg/dL (7-20) Creatinine 0.8 mg/dL (0.6-1.0) Estimated GFR (Cockcroft-Gault) 71.3 BUN/Creatinine Ratio 13 (6-20) Glucose Level 140 mg/dL (70-99) Calcium Level 8.9 mg/dL (8.5-10.1) Magnesium Level 1.7 mg/dL (1.8-2.4) Total Bilirubin 0.5 mg/dL (0.2-1.0) Aspartate Amino Transf (AST/SGOT) 15 U/L (15-37) Alanine Aminotransferase (ALT/SGPT) 15 U/L (14-59) Alkaline Phosphatase 126 U/L (46-116) Troponin I High Sensitivity 129 ng/L (4-50) 141 ng/L (4-50) KC-Kiw-Q-Type Natriuretic Peptide 326 pg/mL (0-124) Total Protein 7.4 g/dL (6.4-8.2) Albumin 3.1 g/dL (3.4-5.0) Albumin/Globulin Ratio 0.7 (1.0-1.7) Urine Collection Type Unknown Urine Color (Auto) Light orange Urine Turbidity Turbid Urine pH (Auto) 7.5 (<5.0-8.0) Urine Specific [place] 1.015 (1.000-1.030) Urine Protein (Auto) 70 mg/dL (Negative) Urine Glucose (Auto)(UA) Negative mg/dL (Negative) Urine Ketones (Auto) Negative mg/dL (Negative) Urine Blood (Auto) Moderate (Negative) Urine Nitrite Negative (Negative) Urine Bilirubin (Auto) Negative (Negative) Urine Urobilinogen (Auto) Normal mg/dL (Normal) Urine Leukocyte Esterase (Auto) Large (Negative) Urine RBC 1-2 /HPF (0-2) Urine WBC >40 /HPF (0-4) Urine Squamous Epithelial Cells Many /LPF Urine Bacteria Moderate /HPF (0-FEW) Assessment/Plan Assessment/Plan 1. Paroxysmal atrial fibrillation s/p recent cardioversion 08/02/2021 presenting with recurrent atrial fibrillation with RVR. Heart rate better controlled but still slightly elevated. She has been started on Cardizem orally on admission. We will increase the dose for better control. Continue Eliquis for stroke prophylaxis. Recent 2D echo in 02/2021 showed LVEF 55%. She apparently did not tolerate sotalol in the recent past. She is currently scheduled for AF ablation therapy at [facility] on 09/30/2021. 2. Non-STEMI, most probably type II/demand ischemia secondary to RVR. Doubt ACS. Consider ischemic evaluation as an outpatient. 3. Hypertension: Better controlled since admission 4. Hyperlipidemia: Continue statin therapy Thank you for your consultation. SYBIL MORENO MD August 12, 2021 09:50
[2021-08-12 10:38] VITALS: BP 107/50
[2021-08-12 15:00] VITALS: BP 109/56
[2021-08-12 19:45] VITALS: BP 124/67
[2021-08-12] MEDS: ATORVASTATIN CALCIUM 10 MG TABLET. PO SCH (20:07)
[2021-08-12 22:51] VITALS: BP 139/88
[2021-08-13 03:07] VITALS: BP 117/59
[2021-08-13] MEDS: PANTOPRAZOLE 40 MG TABLET.DR. PO SCH (05:52)
[2021-08-13 07:00] VITALS: BP 115/70
[2021-08-13] MEDS: METOPROLOL IV PUSH 5 MG/5 ML VIAL. IVP PRN (07:42)
[2021-08-13] MEDS: APIXABAN 5 MG TABLET. PO SCH ×2 (08:36→20:11)
[2021-08-13] MEDS: CALCIUM CARBONATE 500 MG TABLET PO SCH (08:37)
[2021-08-13] MEDS: CHOLECALCIFEROL (VITAMIN D3) 1,000 UNIT TABLET PO SCH (08:38)
--- NOTE | 2021-08-13 08:59 | EKG ---
[facility] [address] [place] [id number] Test Date: 2021-08-11 Test Time: 17:58:57 Pat Name: REED STATON Department: Room: 2 Gender: F Phy Therapist: : [id number] Requested By: YANA ZALDIVAR Order Number: [id number] Reading MD: En Tolbert MD Measurements Intervals [facility] Rate: 132 P: GA: QRS: 19 QRSD: 82 T: 37 QT: 314 QTc: 469 Interpretive Statements Atrial fibrillation with rapid ventricular response NON-SPECIFIC ST/T CHANGES Electronically Signed On 08-13-2021 11:01:16 CDT by En Tolbert MD
--- NOTE | 2021-08-13 10:11 | PDOC ---
[facility] PROGRESS NOTE Date of Service DOS: DATE: 08/13/21 TIME: 10:09 Chief Complaint Chief Complaint A. fib with RVR Hypertension Hyperlipidemia SUDHEER Obesity Elevated troponin secondary to demand ischemia History of Present Illness History of Present Illness 08/13/2021 Patient seen and examined Discussed with RN Chart reviewed Patient remains in A. fib but her rate is controlled Discussed with case management Will probably discharge this afternoon if cardiology agrees Vitals/I&O Vitals/I&O: Vital Signs Date Time Temp Pulse Resp B/P (MAP) Pulse Ox O2 Delivery O2 Flow Rate FiO2 08/13/21 08:36 86 117/59 08/13/21 08:00 Room Air 2.0 08/13/21 07:00 97.5 20 98 97.5 I & O 08/12/21 08/12/21 08/13/21 15:00 23:00 07:00 Intake Total 360 ml 980 ml 300 ml Output Total 400 ml 350 ml 1100 ml Balance -40 ml 630 ml -800 ml Physical Exam General: Alert, Oriented X3, Cooperative, No acute distress Heart: Other (Heart rate irregular) Abdomen: Normal bowel sounds, Soft, No tenderness, No hepatosplenomegaly, No masses Extremities: No clubbing, No cyanosis, No edema, Normal pulses, No tenderness/swelling Skin: No rashes, No breakdown, No significant lesion Assessment and Plan Assessmemt and Plan Resolving AFIB with RVR - Hypertension Hyperlipidemia SUDHEER - untreated Morbid obesity NSTEMI - likely demand mediated type 2 due to AFIB RVR Probable discharge this afternoon if cardiology agrees FEN - Cardiac diet PPX - eliquis FULL CODE Dispo - inpatient Comment Review of Relevant I have reviewed the following items winnie (where applicable) has been applied. Medications: Current Medications Medications (Trade) Dose Ordered Sig/Martín Route PRN Reason Start Time Stop Time Status Last Admin Dose Admin Atorvastatin Calcium (Lipitor) 10 mg HS PO 08/12/21 21:00 08/12/21 20:07 Justifications for Admission Other Justification DK MITTAL III DO August 13, 2021 10:11
[2021-08-13] MEDS ORDERED: DILT180C29 PO (10:13)
[2021-08-13 10:51] VITALS: BP 142/63
--- NOTE | 2021-08-13 11:20 | PDOC ---
VINAY WRIGHT WATCH REPAIRER 08/13/21 1120: CARDIO Progress Notes Date and Time Date of Service 08/13/21 Time of Evaluation 1115 Subjective Subjective: No Chest Pain, No shortness of breath, No Palpitations, No Dizziness Vitals Vitals Vital Signs Date Time Temp Pulse Resp B/P (MAP) Pulse Ox O2 Delivery O2 Flow Rate FiO2 08/13/21 10:51 97.8 76 20 142/63 (89) 98 Nasal Cannula 3.0 97.8 Weight Weight [ ] Input and Output Intake and Output Intake and Output 08/13/21 07:00 Intake Total 1640 ml Output Total 1850 ml Balance -210 ml Intake Oral 1640 ml Output Urine Total 1850 ml Microbiology Micro Microbiology 08/11/21 Urine Culture - Final, Complete Physical Exam HEENT: Neck Supple W Full Motion Chest: Symmetric LUNGS: Clear to Auscultation Heart: irregularly irregular Abdomen: Soft N/T Extremities: Other (1+ bilateral LE edema ) Neurology: alert, oriented, follow commands Assessment Assessment 1. Paroxysmal atrial fibrillation s/p recent cardioversion 08/02/2021 presenting with recurrent AFIB with RVR. Heart rate better controlled, but had RVR this am requiring metoprolol IVP. Recent 2D echo in 02/2021 showed LVEF 55%. She apparently did not tolerate sotalol in the recent past. 2. Non-STEMI, most probably type II/demand ischemia secondary to RVR. Doubt ACS. 3. Hypertension: presently low end 4. Hyperlipidemia: statin therapy Recommendations Continue Cardizem for rate control; unable to uptitrate due to low end blood pressure Will add low-dose metoprolol for better rate control Continue Eliquis for stroke prophylaxis. She is currently scheduled for AF ablation therapy at [facility] on 09/30/2021. Consider ischemic evaluation as an outpatient. Supportive care Justicifation of Admission Dx: Justifications for Admission: Justification of Admission Dx: Yes NICHOL SPARROW MD 08/13/21 1844: CARDIO Progress Notes Assessment Assessment Patient seen and examined She reports feeling better today. I agree with our nurse practitioners assessment and plan. Paroxysmal atrial fibrillation s/p recent cardioversion 08/02/2021 presenting with recurrent AFIB with RVR. Heart rate better controlled, but had RVR this am requiring metoprolol IVP. Recent 2D echo in 02/2021 showed LVEF 55%. She apparently did not tolerate sotalol in the recent past. On Eliquis. She is followed by EP at [place] and is scheduled for an AF ablation in September. Non-STEMI, most probably type II/demand ischemia secondary to RVR. Doubt ACS. Continue medical treatment. Hypertension: presently low end. Continuing to monitor. Hyperlipidemia: statin therapy VINAY WRIGHT APRN August 13, 2021 11:20 NICHOL SPARROW MD August 13, 2021 18:44
--- NOTE | 2021-08-13 14:38 | NUR ---
SS following for discharge planning. SS reviewed pt chart and discussed with pt RN. Pt is from home and is currently on room air. Pt has outpatient appointment for CPAP at home. Pt has no home oxygen. Discharge order on the chart for home with self care.
[2021-08-13 15:00] VITALS: BP 144/93
[2021-08-13] MEDS: METOPROLOL TART IMMED RELEASE 25 MG TABLET. PO SCH ×2 (16:20→20:12)
[2021-08-13 20:10] VITALS: BP 148/77
[2021-08-13] MEDS: ATORVASTATIN CALCIUM 10 MG TABLET. PO SCH (20:11)
[2021-08-13 20:12] VITALS: BP 148/77
== END 2021-08-14 | disposition home or self-care (01) | DRG 281 ==
LOC: ER 17:48 → 6 SOUTH 20:28
PROVIDERS: ADMIT Internal Medicine; ATTEND Internal Medicine
DX: I48.0 Paroxysmal atrial fibrillation (principal); I21.A1 Myocardial infarction type 2; I50.32 Chronic diastolic (congestive) heart failure; Z68.41 Body mass index [BMI] 40.0-44.9, adult; I11.0 Hypertensive heart disease with heart failure; E78.00 Pure hypercholesterolemia, unspecified; G47.33 Obstructive sleep apnea (adult) (pediatric); E78.5 Hyperlipidemia, unspecified; K21.9 Gastro-esophageal reflux disease without esophagitis; E66.01 Morbid (severe) obesity due to excess calories; Z90.89 Acquired absence of other organs; Z90.710 Acquired absence of both cervix and uterus; Z82.49 Family history of ischemic heart disease and other diseases of the circulatory system; Z88.0 Allergy status to penicillin; Z87.891 Personal history of nicotine dependence; Z79.01 Long term (current) use of anticoagulants; Z88.2 Allergy status to sulfonamides; Z88.5 Allergy status to narcotic agent; Z88.8 Allergy status to other drugs, medicaments and biological substances; Z79.899 Other long term (current) drug therapy
CPT/HCPCS: 36415; 71045; 80053; 81001; 83735; 83880; 84484; 85025; 85610; 85730; 87086; 93005; 96361; 96365; 96375; J3475; J3490; J7060; J7120; 99285-25; G0378